=== PATIENT | female | born 1990 | race Caucasian/White ===

== ENCOUNTER 2018-02-09 15:27 | Emergency (ER) | payer MEDICAID, OTHER ==
[2018-02-09 15:52] VITALS: RESP 18; TEMP 98.8; O2SAT 100
--- NOTE | 2018-02-09 17:33 | C.PDOC ---
History Of Present Illness 27yo female, states she has had pelvic pain with associated urinary frequency and occasional dysuria intermittently for the past 3 months. Patient states when she had a bowel movement 3 and 2 days ago, she noticed bright red blood upon wiping. Patient states she has had a bowel movement since then without any blood. Admits to hard stools. She also notes she has a history of frequent urination last year when she was evaluated by her [employer] but her symptoms resolved without a diagnosis. She denies any fever, back pain, abdominal pain, nausea, vomiting, vaginal discharge or bleeding. Time Seen by Provider: 02/09/18 16:08 Chief Complaint (Nursing): Abdominal Pain History Per: Patient History/Exam Limitations: no limitations Onset/Duration Of Symptoms: Persistent Current Symptoms Are (Timing): Still Present Associated Symptoms: Urinary Symptoms. denies: Nausea, Vomiting Abnormal Vaginal Bleeding: No Past Medical History Reviewed: Historical Data, Nursing Documentation, Vital Signs Vital Signs: Last Vital Signs Temp 98.8 F 02/09/18 15:49 Pulse 88 02/09/18 18:17 Resp 18 02/09/18 18:17 BP 131/90 02/09/18 18:17 Pulse Ox 100 02/09/18 20:10 - Medical History PMH: HTN Surgical History: No Surg Hx Family History: States: Unknown Family Hx - Social History Hx Alcohol Use: Yes Hx Substance Use: No - Immunization History Hx Tetanus Toxoid Vaccination: No Hx Influenza Vaccination: No Hx Pneumococcal Vaccination: No Review Of Systems Except As Marked, All Systems Reviewed And Found Negative. Constitutional: Negative for: Fever, Chills Gastrointestinal: Negative for: Nausea, Vomiting, Abdominal Pain, Diarrhea, Hematochezia Genitourinary: Positive for: Dysuria, Frequency, Pelvic Pain. Negative for: Hematuria, Vaginal Discharge, Vaginal Bleeding Physical Exam - Physical Exam Appears: Non-toxic, No Acute Distress Skin: Normal Color Head: Atraumatic, Normacephalic Eye(s): bilateral: Normal Inspection, EOMI Nose: Normal Oral Mucosa: Moist Neck: Normal ROM, Supple Chest: Symmetrical Cardiovascular: Rhythm Regular Respiratory: Normal Breath Sounds Gastrointestinal/Abdominal: Soft, Tenderness (suprapubic tenderness) Rectal: Normal Exam, Heme Negative Back: Normal Inspection Pelvic: Normal External Exam, Normal Speculum Exam, No Vaginal Bleeding, No Vaginal Discharge, No Cervical Motion Tenderness Extremity: Normal ROM Neurological/Psych: Oriented x3 ED Course And Treatment O2 Sat by Pulse Oximetry: 100 (RA) Pulse Ox Interpretation: Normal Progress Note: Pelvic and rectal exam chaperoned by female Subha santiago. Patient given Macrobid 100 mg PO in ER. XR Abdomen reviewed with no acute findings. Patient encoarged to increased fiber and water and informed to follow up with PCP in 2-3 days. Disposition - Disposition Disposition: HOME/ ROUTINE Disposition Time: 18:08 Condition: STABLE Additional Instructions: Follow up with your primary medical doctor or clinic in 2-5 days for further evaluation. Take medications as prescribed. Return to the emergency department at any time if symptoms persist or worsen. Prescriptions: Nitrofurantoin Macrocrystals [Macrobid] 1 cap PO BID #14 cap Instructions: Urinary Tract Infection, Adult (DC) Forms: [employer] (Kazakh) - Clinical Impression Clinical Impression: UTI (urinary tract infection) - PA / SKATING CARHOP / Resident Statement MD/DO has reviewed & agrees with the documentation as recorded. - Scribe Statement The provider has reviewed the documentation as recorded by the Scribe (Denisa Stoddard) Provider Attestation: All medical record entries made by the Sheriibe were at my direction and personally dictated by me. I have reviewed the chart and agree that the record accurately reflects my personal performance of the history, physical exam, medical decision making, and the department course for this patient. I have also personally directed, reviewed, and agree with the discharge instructions and disposition.
[2018-02-09 17:39] LABS: HCG,QUALITATIVE URINE NEGATIVE (NEGATIVE); SQUAMOUS EPITHIAL 50 /hpf (0-5); URINE BACTERIA MANY (<OCC); URINE BILIRUBIN NEGATIVE (NEGATIVE); URINE BLOOD 1+ (NEGATIVE); URINE CLARITY Hazy (Clear); URINE COLOR Amber (YELLOW); URINE GLUCOSE (UA) NORMAL (Normal); URINE LEUKOCYTE ESTERASE 3+ Leu/uL (Negative); URINE PROTEIN 1+ mg/dL (NEGATIVE); URINE UROBILINOGEN NORMAL mg/dL (0.2-1.0)
[2018-02-09 18:18] VITALS: BP 131/90; PULSE 88
--- NOTE | 2018-02-09 18:33 | RAD ---
PROCEDURE: Radiographs of the chest and abdomen (obstructive series) HISTORY: pain COMPARISON: No prior. TECHNIQUE: AP radiograph of the chest, with upright and supine radiographs of the abdomen. FINDINGS: CHEST: Lungs: The lungs are well inflated and clear. Cardiovascular: Normal size heart. No pulmonary vascular congestion. Pleura: No pleural fluid. No pneumothorax. Other findings: None. ABDOMEN AND PELVIS: Bowel: The bowel gas pattern is nonobstructive. There are no differential air-fluid levels. Free air: None. Bones: Unremarkable. Other findings: None. IMPRESSION: Nonobstructive bowel-gas pattern. Clear lungs.
== END 2018-02-09 18:18 | disposition home or self-care (01) ==
LOC: C.ER 15:27
DX: N39.0 Urinary tract infection, site not specified (principal)
CPT/HCPCS: 74022; 81001; 84703; 87086; 99284; G0328

== ENCOUNTER 2018-03-29 12:12 | Emergency (ER) | payer MEDICAID ==
[2018-03-29 12:12] VITALS: BMI 38.5
[2018-03-29 13:28] LABS: HCG,QUALITATIVE URINE POSITIVE (NEGATIVE)
[2018-03-29 13:33] LABS: SQUAMOUS EPITHIAL 7 /hpf (0-5); URINE BILIRUBIN NEGATIVE (NEGATIVE); URINE BLOOD 1+ (NEGATIVE); URINE CLARITY Hazy (Clear); URINE COLOR Yellow (YELLOW); URINE GLUCOSE (UA) 1+ mg/dL (Normal); URINE LEUKOCYTE ESTERASE NEG Leu/uL (Negative); URINE PROTEIN NEGATIVE (NEGATIVE); URINE UROBILINOGEN NORMAL mg/dL (0.2-1.0)
[2018-03-29 13:51] LABS: BASO # 0.1 K/uL (0.0-0.2); BASO % 1.3 % (0.0-2.0); EOS # 0.2 K/uL (0.0-0.7); EOS % 2.8 % (0.0-4.0); HEMOGLOBIN 12.3 g/dL (11.0-16.0); LYMPH # 1.4 K/uL (1.0-4.3); LYMPH % 17.2 % (20.0-40.0); MEAN CELL VOLUME 92.8 fL (81.0-99.0); MEAN CORPUSCULAR HEMOGLOBIN 32.2 pg (27.0-31.0); MEAN CORPUSCULAR HGB CONC 34.7 g/dL (33.0-37.0); MEAN PLATELET VOLUME 7.1 fL (7.2-11.7); MONO # 0.4 K/uL (0.0-0.8); MONO % 4.4 % (0.0-10.0); NEUT % 74.3 % (50.0-75.0); NRBC % 0.1 % (0.0-2.0); RBC 3.82 Mil/uL (3.80-5.20); RED CELL DISTRIBUTION WIDTH 14.3 % (11.5-14.5); WHITE BLOOD COUNT 8.1 K/uL (4.8-10.8)
[2018-03-29 15:01] LABS: ALBUMIN 3.7 g/dL (3.5-5.0); ALT/SGPT 17 U/L (9-52); AST/SGOT 22 U/L (14-36); BLOOD UREA NITROGEN 10 mg/dL (7-17); CALCIUM 8.4 mg/dl (8.6-10.4); GFR AFRICAN-AMERICAN > 60; GFR NON-AFRICAN AMERICAN > 60
[2018-03-29] MEDS ORDERED: Lactated Ringer's 1,000 ML IV ONE (15:10)
--- NOTE | 2018-03-29 15:49 | US ---
PROCEDURE: OB Pelvic Ultrasound HISTORY: vag bleedpreg COMPARISON: None available. FINDINGS: UTERUS: Single Live intrauterine gestation. CRL measures 2 millimeters, out of range for age determination. Gestational sac mean diameter is 12 millimeters equal to 5 weeks 2 days gestational age. age (Ultrasound estimated): 5 weeks 2 days Date of delivery (Ultrasound estimated) : 11/27/2018 Heart rate: 101 bpm. Ivonne-gestational hemorrhage: None. 4 millimeter yolk sac visualized Uterus measures 8.7 x 3.9 x 4.8 cm. No mass CERVIX: Long and closed. No cervical abnormality seen. RIGHT OVARY: Measures 2.7 x 1.9 x 2.0 cm. No mass. Normal flow. Corpus luteum measures 1.2 x 1.0 x 1.2 centimeters. LEFT OVARY: Measures 2.4 x 1.5 x 1.9 cm. No mass. Normal flow. FREE FLUID: None. OTHER FINDINGS: None. IMPRESSION: Single live intrauterine gestation of approximately 5 weeks 2 days gestational age. No subchorionic hemorrhage. Foetal heart rate 101 beats per minute. Right ovarian corpus luteum, 12 millimeters.
--- NOTE | 2018-03-29 16:10 | C.PDOC ---
History Of Present Illness 28 y/o female, , w/PMhx of HTN, presents to the ER complaining of vaginal bleeding which has been present for the past 3 days. Patient states that she sees blood only when she wipes. Patient reports that she had heavy abdominal cramps since she found out that she was . Her LMP was 02/11/18. Patient notes that she has an appointment with the physician in 2 days. Time Seen by Provider: 03/29/18 13:10 Chief Complaint (Nursing): Female Genitourinary History Per: Patient History/Exam Limitations: no limitations Onset/Duration Of Symptoms: Days Current Symptoms Are (Timing): Still Present Severity: Moderate Past Medical History Reviewed: Historical Data, Nursing Documentation, Vital Signs Vital Signs: Last Vital Signs Temp 98.3 F 03/29/18 12:30 Pulse 79 03/29/18 12:30 Resp 16 03/29/18 12:30 BP 126/86 03/29/18 12:30 Pulse Ox 100 03/29/18 16:15 - Medical History PMH: HTN Surgical History: No Surg Hx Family History: States: No Known Family Hx - Social History Hx Alcohol Use: No Hx Substance Use: No - Immunization History Hx Tetanus Toxoid Vaccination: No Hx Influenza Vaccination: No Hx Pneumococcal Vaccination: No Review Of Systems Except As Marked, All Systems Reviewed And Found Negative. Constitutional: Negative for: Fever, Chills Gastrointestinal: Positive for: Abdominal Pain Genitourinary: Positive for: Vaginal Bleeding Physical Exam - Physical Exam Appears: Non-toxic, No Acute Distress Skin: Normal Color, Warm, Dry Head: Atraumatic, Normacephalic Eye(s): bilateral: Normal Inspection Nose: Normal Oral Mucosa: Moist Neck: Supple Chest: Symmetrical Cardiovascular: Rhythm Regular Respiratory: Normal Breath Sounds, No Rales, No Rhonchi, No Wheezing Gastrointestinal/Abdominal: Normal Exam, Soft, No Tenderness Neurological/Psych: Oriented x3, Normal Speech ED Course And Treatment - Laboratory Results Result Diagrams: 03/29/18 13:46 03/29/18 14:43 O2 Sat by Pulse Oximetry: 100 (RA) Pulse Ox Interpretation: Normal - CT Scan/US US Other Rad Studies (CT/US): Read By Radiologist, Radiology Report Reviewed CT/US Interpretation: PROCEDURE: OB Pelvic Ultrasound. HISTORY: vag bleedpreg. COMPARISON: None available. FINDINGS: UTERUS: Single Live intrauterine gestation. CRL measures 2 millimeters, out of range for age determination. Gestational sac mean diameter is 12 millimeters equal to 5 weeks 2 days gestational age. age (Ultrasound estimated): 5 weeks 2 days. Date of delivery (Ultrasound estimated) : 11/27/2018. Heart rate: 101 bpm. Ivonne-gestational hemorrhage: None. 4 millimeter yolk sac visualized. Uterus measures 8.7 x 3.9 x 4.8 cm. No mass. CERVIX: Long and closed. No cervical abnormality seen. RIGHT OVARY: Measures 2.7 x 1.9 x 2.0 cm. No mass. Normal flow. Corpus luteum measures 1.2 x 1.0 x 1.2 centimeters. LEFT OVARY: Measures 2.4 x 1.5 x 1.9 cm. No mass. Normal flow. FREE FLUID: None. OTHER FINDINGS: None. IMPRESSION: Single live intrauterine gestation of approximately 5 weeks 2 days gestational age. No subchorionic hemorrhage. Foetal heart rate 101 beats per minute. Right ovarian corpus luteum, 12 millimeters. Progress Note: Labs and US- Transvag ordered. Disposition Counseled Patient/Family Regarding: Diagnosis, Need For Followup - Disposition Disposition Time: 16:15 Forms: [employer] (Cameroonian) - Clinical Impression Clinical Impression: Threatened - Scribe Statement The provider has reviewed the documentation as recorded by the Sheriiboneida Frias Provider Attestation: All medical record entries made by the Scribe were at my direction and personally dictated by me. I have reviewed the chart and agree that the record accurately reflects my personal performance of the history, physical exam, medical decision making, and the department course for this patient. I have also personally directed, reviewed, and agree with the discharge instructions and disposition.
[2018-03-29 16:29] VITALS: BP 126/87; PULSE 16; RESP 97; TEMP 98.9; O2SAT 95
== END 2018-03-29 16:48 | disposition home or self-care (01) ==
LOC: C.ER 12:12
DX: O20.0 Threatened abortion (principal); Z3A.01 Less than 8 weeks gestation of pregnancy
CPT/HCPCS: 76817; 80053; 81001; 84702; 84703; 85025; 86850; 86900; 96360; 99284; J7120